=== PATIENT | male | born 1980 | race Caucasian/White ===

== ENCOUNTER 2019-09-15 02:31 | Emergency (ER) | payer OTHER, BC, SELFPAY ==
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
--- NOTE | ~2019-09-15 | XR_ITS ---
EXAMINATION: XR foot LT min 3V DATE: 09/15/2019 03:27 INDICATION: Calcaneal and great toe pain at the left foot TECHNIQUE: Dorsoplantar, two oblique and lateral views of the left foot were obtained. COMPARISON: None. FINDINGS: Minimally displaced mildly comminuted intra-articular fracture at the base of the left first distal p halanx. Approximately 2 mm depression of a small fragment at the central aspect of the articular surf laron. There is also a nondisplaced fracture at the tuft of the first distal phalanx. Normal alignment and remainder of the left foot. No other fractures identified. Joint spaces are normal. Small plantar calcaneal spur. IMPRESSION: 1. Mildly comminuted intra-articular fracture at the base of the left first distal phalanx with 2 mm depression of a small central fragment. 2. Nondisplaced fracture at the tuft of the first distal phalanx. Reviewed, dictated and finalized at location A. IMPRESSION: 1. Mildly comminuted intra-articular fracture at the base of the left first dis marcia phalanx with 2 mm depression of a small central fragment. 2. Nondisplaced fracture at the tuft of the first distal phalanx.
[2019-09-15 02:38] VITALS: BP 159/92; PULSE 100; RESP 19; TEMP 37.2; O2SAT 99
[2019-09-15] MEDS: MORPHINE SULFATE 4 MG/ML INJ IV PUSH (03:34)
[2019-09-15 04:16] VITALS: BP 132/85; PULSE 82; RESP 20; TEMP 37.1; O2SAT 100
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
[2019-09-15 04:58] VITALS: BP 135/85; PULSE 88; RESP 19; TEMP 36.8; O2SAT 100
--- NOTE | 2019-09-15 05:44 | PC.NURSE ---
called patient to let him know his wallet is here, he said he would be up later today to get it.
== END 2019-09-15 04:58 | disposition home or self-care (01) ==
PROVIDERS: Emergency Provider Emergency Medicine; PCP Family Medicine
DX: S92.422A Displaced fracture of distal phalanx of left great toe, initial encounter for closed fracture (principal); S92.425A Nondisplaced fracture of distal phalanx of left great toe, initial encounter for closed fracture; I10 Essential (primary) hypertension; F17.200 Nicotine dependence, unspecified, uncomplicated; V20.4XXA Motorcycle driver injured in collision with pedestrian or animal in traffic accident, initial encounter
CPT/HCPCS: 73590; 73630; 73700; 96374; 99284; J2270

== ENCOUNTER 2020-01-27 13:12 | Outpatient (CLI) | payer BC, SELFPAY ==
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
== END 2020-01-27 13:13 | disposition home or self-care (01) ==
DX: S42.022A Displaced fracture of shaft of left clavicle, initial encounter for closed fracture (principal); S22.32XA Fracture of one rib, left side, initial encounter for closed fracture
CPT/HCPCS: 73000

== ENCOUNTER 2020-03-12 14:05 | Outpatient (CLI) | payer BC, SELFPAY ==
--- NOTE | ~2020-03-12 | CT_ITS ---
EXAMINATION: CT shoulder LT wo con DATE: 03/12/2020 14:51 INDICATION: Closed fracture of left clavicle. TECHNIQUE: Computed tomography (CT) of the left shoulder was performed without intravenous contrast. Automated exposure control and iterative reconstruction technique were employed. The dose-length prod uct was 542.03 mGy-cm. COMPARISON: Left clavicle radiographs 01/27/2020 FINDINGS: There is a comminuted fracture involving middle third of left clavicle. The main distal fra cture fragment demonstrates 7 mm posterior displacement, one shaft width inferior displacement, and 5 mm overriding. There is bridging callus formation. The coracoclavicular interval is normal. The joel ohumeral joint is normal. There is moderate acromioclavicular joint osteoarthritis. IMPRESSION: 1. Healing comminuted fracture involving middle third of left clavicle. 2. Moderate acromioclavicular joint osteoarthritis. Reviewed, dictated and finalized at location A. OMS GUARD
== END 2020-03-12 14:06 | disposition home or self-care (01) ==
DX: S42.022A Displaced fracture of shaft of left clavicle, initial encounter for closed fracture (principal); M19.012 Primary osteoarthritis, left shoulder
CPT/HCPCS: 73200

== ENCOUNTER 2020-04-04 02:50 | Emergency (ER) | payer BC, SELFPAY ==
[2020-04-04 02:52] VITALS: BP 155/101; PULSE 102; RESP 16; TEMP 36.9; O2SAT 100
--- NOTE | 2020-04-04 03:05 | ED.SKABFB ---
HPI - Skin/Abscess/Foreign Bdy General Chief complaint: Skin/Abscess/Foreign Body Stated complaint: spider bite? Time Seen by Provider: 04/04/20 03:04 History of Present Illness HPI narrative: 39 yo male presents to the ED for a spider bite. He noted 2 small wounds on his left thigh a few days ago which seem to be getting bigger. He is remodeling a house and recently came across what he believes were brown recluses. Additionally he has a small weeping sore at the opening of his right nostril. It it painful. No fever, chills, nausea, vomiting, or other systemic symptoms. Related Data Allergies Allergy/AdvReac Type Severity Reaction Status Date / Time No Known Allergies Allergy Verified 04/04/20 03:11 Review of Systems Review of Systems: All systems reviewed & are unremarkable except as noted in HPI and below Constitutional: Constitutional: Denies fever(s) ENT: Denies sore throat Cardiovascular: Cardiovascular: Denies chest pain Respiratory: Respiratory: Denies dyspnea Gastrointestinal: Gastrointestinal: Denies abdominal pain and Denies nausea Integumentary/Breasts: Skin/Breast: Reports skin ulcer PMFSH Past Medical History Medical History (Updated 04/05/20 @ 00:00 by Zeke Willoughby) ADHD Anxiety Arm fracture, left Chronic back pain Hand fracture Bilateral HTN (hypertension) Leg fracture, left Pathologic fx vertebrae Ruptured C3 Pneumonia Ulcer Surgical History Surgical History (Updated 02/24/19 @ 13:27 by Mireille Pinedo) History of shoulder surgery Right Social History Social History (Updated 02/24/19 @ 13:34 by Mireille Pinedo) Smoking status: Current every day smoker Second hand tobacco smoke exposure: Yes Alcohol intake: current Substance use: never Gender identity (if verbalized by the patient): Male Exam Const: General: healthy appearing, no acute distress and alert Orientation/consciousness: patient oriented x3 HENMT: Other: small draining abscessed follicle in right nares. Eyes: Pupils: Equal, round and reactive pupils present Neck: Neck: normal visual inspection and no lymphadenopathy Chest: Chest palpation & inspection: no tenderness Resp: Effort & Inspection: normal respiratory effort Auscultation: clear to auscultation bilaterally, no rales, no rhonchi and no wheezes Cardio: Jugular venous distension: no JVD Rate: regular rate Rhythm: regular rhythm Heart sounds: no murmurs GI: GI Palp: Yes Soft to palpation and No Tenderness to palpation present (GI) Skin: Other: 2 small ulcerated areas to right thigh with mild surrounding erythema. Neuro: General: patient oriented x3, moves all extremities, no focal motor deficits and CN's II-XI intact bilaterally Speech: normal speech Gait exam (Neuro): Normal gait present Extrem: General: no edema Psych: Appearance: well kempt Affect: normal affect Course Vital Signs Vital signs: Vital Signs Temperature 36.9 C 04/04/20 02:52 Pulse Rate 102 H 04/04/20 02:52 Respiratory Rate 16 04/04/20 02:52 Blood Pressure 155/101 H 04/04/20 02:52 Pulse Oximetry 100 04/04/20 02:52 Temperature 36.9 C 04/04/20 02:52 Pulse Rate 102 H 04/04/20 02:52 Respiratory Rate 16 04/04/20 02:52 Blood Pressure 155/101 H 04/04/20 02:52 Pulse Oximetry 100 04/04/20 02:52 MDM - Skin/Abscess/Foreign Bdy Differential Diagnosis Differential diagnosis: Likely abscess of skin or subcutaneous tissue, cellulitis and insect bites Discharge Plan Discharge Clinical Impression: Brown recluse spider bite, Folliculitis of nose Patient Disposition: Home, Self-Care Condition: Stable Instructions: Antibiotic Form, Brown Recluse Spider Bite (ED) Prescriptions: New sulfamethoxazole-trimethoprim [Bactrim DS] 800-160 mg tablet 1 tablet PO Q12H Qty: 14 RF: 0 No Action hydrocodone-acetaminophen 5-325 mg tablet 1 tablet PO Q6H PRN (Reason: pain) Qty: 20 RF: 0 Follow-up/Referrals: [facility]
== END 2020-04-04 03:20 | disposition home or self-care (01) ==
PROVIDERS: Emergency Provider Emergency Medicine
DX: T63.331A Toxic effect of venom of brown recluse spider, accidental (unintentional), initial encounter (principal); L73.9 Follicular disorder, unspecified; I10 Essential (primary) hypertension; F17.200 Nicotine dependence, unspecified, uncomplicated
CPT/HCPCS: 99283; A9270

== ENCOUNTER 2021-05-30 21:13 | Emergency (ER) | payer OTHER, SELFPAY ==
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
[2021-05-30 21:20] VITALS: PULSE 108; RESP 16; TEMP 36.5; O2SAT 100
[2021-05-30] MEDS: TETANUS,DIPHTHERIA,AC PERTUSSIS ADULT (0.5 ML) BOOSTRIX IM (21:26)
[2021-05-30] MEDS: LIDOCAINE HCL 1% LOCAL INJ 20 ML VIAL 10 ML INFILTRATE (21:32)
--- NOTE | 2021-05-30 22:01 | PC.NURSE ---
ERP AT BEDSIDE TO SUTURE
[2021-05-30 22:45] VITALS: BP 132/70; PULSE 68; RESP 16; TEMP 36.6
== END 2021-05-30 22:47 | disposition home or self-care (01) ==
PROVIDERS: Emergency Provider Nurse Practitioner Family; PCP Family Medicine
DX: S61.211A Laceration without foreign body of left index finger without damage to nail, initial encounter (principal); Z23 Encounter for immunization; I10 Essential (primary) hypertension; Z87.01 Personal history of pneumonia (recurrent); F17.200 Nicotine dependence, unspecified, uncomplicated; W31.2XXA Contact with powered woodworking and forming machines, initial encounter
CPT/HCPCS: 12001; 90471; 90715; 99283

== ENCOUNTER 2021-09-17 21:28 | Emergency (ER) | payer OTHER, SELFPAY ==
[2021-09-17 21:47] VITALS: BP 123/69; PULSE 97; RESP 18; TEMP 36.6; O2SAT 97
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
[2021-09-17] MEDS: FLUORESCEIN SOD 1 MG/STRIP RIGHT EYE (22:29)
[2021-09-17] MEDS: TETRACAINE HCL 0.5% OPHTH SOLN 4 ML BTL 1 DROP RIGHT EYE (22:29)
[2021-09-17] MEDS: DACRIOSE EYE IRRIGATION 118 ML BOTTLE (22:33)
== END 2021-09-17 22:51 | disposition short-term general hospital (02) ==
PROVIDERS: Emergency Provider Emergency Medicine; PCP Family Medicine
DX: S05.01XA Injury of conjunctiva and corneal abrasion without foreign body, right eye, initial encounter (principal); F17.210 Nicotine dependence, cigarettes, uncomplicated; F90.9 Attention-deficit hyperactivity disorder, unspecified type; F41.9 Anxiety disorder, unspecified; I10 Essential (primary) hypertension; Y29.XXXA Contact with blunt object, undetermined intent, initial encounter
CPT/HCPCS: 99283; A9270

== ENCOUNTER 2025-02-25 20:45 | Emergency (ER) | payer SELFPAY ==
--- NOTE | ~2025-02-25 | CT_ITS ---
EXAMINATION: CTA abdomen pelvis DATE: 02/26/2025 00:17 INDICATION: Abdominal pain. Abdominal distention. TECHNIQUE: Computed tomographic angiography (CTA) of the abdomen and pelvis was performed with 100 mL Omnipaque-350 intravenous contrast. Automated exposure control and iterative reconstruction technique were employed. The dose-length product was 964.73 mGy-cm. Maximum intensity projection 3D-reconstructions of the aorta and other arteries were constructed by the technologist on a separate workstation. COMPARISON: CT abdomen and pelvis 12/05/2015 FINDINGS: The visualized portions of the lung bases demonstrate mild atelectasis. No pleural effusion. The heart size is normal. No pericardial effusion. There is a moderate-sized sliding hiatal hernia. The liver, gallbladder, spleen, pancreas, adrenal glands, and kidneys are normal. The prostate is mildly enlarged. There are no dilated loops of bowel. The appendix is normal. There is an umbilical hernia containing fat. There is a right inguinal hernia containing fat. There is no significant stenosis of celiac axis, superior mesenteric artery, the renal arteries, or inferior mesenteric artery. There is mild thoracic and lumbar spondylosis. IMPRESSION: 1. Moderate-sized sliding hiatal hernia. 2. Umbilical hernia containing fat. 3. Right inguinal hernia containing fat. 4. Normal aorta. Reviewed, dictated and finalized at location E. [employer]
[2025-02-25 20:48] VITALS: BP 174/85; PULSE 117; RESP 20; TEMP 36.7; O2SAT 100
--- OUTSIDE RECORDS SUMMARY | 2025-02-25 20:48 | XMS_ITS | Clinical Summary ---
Author Organization [facility] Address [address] [place] [address] Care Team Providers Care Store Keeper Name Role Phone Non-Staff, Provider Primary Care Provider Unavai lable Allergies No known active allergies Medications No known medications Active Problems No known active problems Immunizations Immunization Administration Dates Next Due Fluzone 6 Months+ Quad (0.5 mL Prefilled Syringe ) 02/06/2020 Social History Tobacco Use Types Packs/Day Years Used Date Smoking Tobacco: Heavy Smoker Cigarettes 1 30.9 Started: 03/26/1994 Smokeless Tobacco: Never Tobacco Cessation:Ready to Q uit: No; Counseling Given: Yes Alcohol Use Standard Drinks/Week Comments Yes 1.7 (1 standard drink = 0.6 oz p ure alcohol) Social Connection and Isolation Panel Answer Date Recorded In a typical week, how many times do you talk on the phone with family, friends, or neighbors? Once a week 01/25/2020 How often do you get together with friends or re latives? Once a week 01/25/2020 How often do you attend nondenominational or tenriism serv ices? Never 01/25/2020 Do you belong to any clubs o r organizations such as nondenominational groups, unions, fraternal or athletic groups, or school groups? No 01/25/2020 How often do you attend meet ings of the clubs or organizations you belong to? Never 01/25/2020 Marital Status Not on file 01/25/2020 AUDIT-C Answer Date Recorded Q1: How often do you have a drink containing alc ohol? Monthly or less 01/25/2020 Average Number of Drinks Not on file 020 Q3: How often do you have si x or more drinks on one occasion? Less than monthly 01/25/2020 Overall Financial Resource Strain (CARDIA) Answe r Date Recorded How hard is it for you to pa y for the very basics like food, housing, medical care, and heating? Not hard at all 01/25/2020 PHQ-2 Answer Date Recorded PHQ-2 Score - If the patient scores above 3, please move on to questions 3-9 0 03/01/2020 Hunger Vital Sign Answer Date Recorded Within the past 12 months, y ou worried that your food would run out before you got the money to buy more. Never true 01/25/20 20 Within the past 12 months, t he food you bought just didn't last and you didn't have money to get more. Never true 01/25/2020 PRAPARE - Transportation Answer Date Re corded In the past 12 months, has l ack of transportation kept you from medical appointments or from getting medications? No 07/2019 In the past 12 months, has l ack of transportation kept you from meetings, work, or from getting things needed for daily living? 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 Not on file Not on file Last Filed Vital Signs Vital Sign Reading Time Taken Comments Blood Pressure 126/70 03/05/2020 10:15 AM SALES REPRESENTATIVE PRINTING PAPER Pulse 96 03/05/2020 10:15 AM SALES REPRESENTATIVE PRINTING PAPER Temperature 37.1 C (98.7 F) 03/05/2020 10:15 AM SALES REPRESENTATIVE PRINTING PAPER Respiratory Rate 18 03/05/2020 10:15 AM SALES REPRESENTATIVE PRINTING PAPER Oxygen Saturation 98% 03/05/2020 10:15 AM SALES REPRESENTATIVE PRINTING PAPER Inhaled Oxygen Concentration - - Weight 86.6 kg (191 lb) 03/05/2020 10:15 AM SALES REPRESENTATIVE PRINTING PAPER Height 182.9 cm (6') 03/05/2020 10:15 AM SALES REPRESENTATIVE PRINTING PAPER Body Mass Index 25.9 03/05/2020 10:15 AM SALES REPRESENTATIVE PRINTING PAPER Plan of Treatment Health Maintenance Due Date Last Done Comments Colorectal Cancer Screening Colonoscopy (10 Years) 1979 Annual Physical 10/24/1982 Hepatitis C 10/24/1997 Hepatitis B Vaccines (1 of 3 - 19+ 3-dose series) 10/24/1998 Pneumococcal Vaccine: Pediatrics (0 to 5 Years) and At-Risk Patients (6 to 49 Years) (1 of 2 - PCV) 10/24/1998 03/01/2020 HPV Vaccines (1 - 3-dose SCD M series) 10/24/2006 COVID-19 Vaccine (2024-2 6 season) 2024 Influenza Adult (#1) 2024 02/06/2020, 02/27/2019 DTaP, Tdap and Td Vaccines ( 3 - Td or Tdap) 12/04/2029 12/05/2019, 11/26/2015 Hepatitis A Vaccines Aged Out No long er eligible based on patient's age to complete this topic Meningococcal B Vaccine Aged Out No l onger eligible based on patient's age to complete this topic Meningococcal Vaccine Aged Out No reinaldo melvin eligible based on patient's age to complete this topic RSV Immunizations Under 20 Months Aged Out No longer eligible b ased on patient's age to complete [place] [address] [facility] MEDICAID Care Teams Store Keeper Relationship Specialty Start Date End Date Non-Staff, Provider PCP - General UNKNOWN PHYSICIAN SPECIALTY 02/08/25
--- OUTSIDE RECORDS SUMMARY | 2025-02-25 20:48 | XMS_ITS | Encounter Summary ---
Author Organization [facility] Address [address] [place] [address] Care Team Providers Care Boat Hop Name Role Phone Elina Hampton NP Primary Care Provider Mirtha hills Non-Staff, Provider Primary Care Provider Nabli guadalupe Encounter Details Date Type Department Care Team (Late st Contact Info) Description 07/02/2020 XG Sciencest Message Enc [facility] Medical Group Multispecialty Care - [address] [place] [address] Elina Hampton, TRAIN GATEMAN RE: Question Social History Tobacco Use Types Packs/Day Years Used Date Smoking Tobacco: Heavy Smoker Cigarettes 1 30.9 Started: 03/26/1994 Smokeless Tobacco: Never Alcohol Use Standard Drinks/Week Comments Yes 1.7 [...] week 01/25/2020 How often do you attend spiritism or islam serv ices? Never 01/25/2020 Do you belong to any clubs o r organizations such as spiritism groups, unions, fraternal or athletic groups, or [...] money to buy more. 

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
--- OUTSIDE RECORDS SUMMARY | 2025-02-25 20:48 | XMS_ITS | Encounter Summary ---
Author Organization [facility] Address [address] [place] [place] [address] Care Team Providers Care Advertising Job Titles Name Role Phone Carmen Barros MD Primary Care Provider [phone] Simba Colunga MD Primary Care Provider + [phone] Encounter Details Date Type Department Care Team (Late st Contact Info) Description 12/07/2019 Ophth Exam [facility] [address] [place] [address] Parish Mccullough MD [address] [place] [phone] Social History Tobacco Use Types Packs/Day Years Used Date Smoking Tobacco: Every Day Cigarettes Smokeless Tobacco: Never Alcohol Use Standard Drinks/Week Comments Yes 0 (1 standard drink = 0.6 oz pur e alcohol) Sex and Gender Information Value Date Recorded Sex Assigned at Not on file Legal Sex Male 11:54 PM CDT Gender Identity Not on file Sexual Orientation Not on file documented as of this encounter Functional Status * Is person deaf or have serious hearing difficulty? Answer Date of Assessment Author No 12/05/2019 4:32 AM CDT Lindy Mullen RN * Is person blind or have serious difficulty seeing? Answer Date of Assessment Author No 12/05/2019 4:32 AM CDT Lindy Mullen RN * Does person have serious difficulty walking/climbing stairs? Answer Date of Assessment Author No 12/05/2019 4:32 AM Lindy Nicholson RN * Does person have difficulty dressing/bathing? Answer Date of Assessment Author No 12/05/2019 4:32 AM Lindy Nicholson RN * Does person have difficulty doing errands alone? Answer Date of Assessment Author No 12/05/2019 4:32 AM Lindy Nicholson RN documented as of this encounter Mental Status * Does person have difficulty concentrating/remembering/making decisions? Answer Entry Date Author Yes 12/05/2019 4:32 AM Lindy Nicholson RN documented in this encounter Plan of Treatment Not on file documented as of this encounter Visit Diagnoses Not on filedocumented in this encounter Care Teams Advertising Job Titles Relationship Specialty Start Date End Date Carmen Barros MD [address] [place] [phone] PCP - General 12/05/19 09/17/21 Simba Colunga MD [address] [place] [address] PCP - General Family Medicine 09/18/21 documented as of this encounter
--- OUTSIDE RECORDS SUMMARY | 2025-02-25 20:48 | XMS_ITS | Encounter Summary ---
Author Organization [facility] Address [address] [place] [address] Care Team Providers Care Mica Machine Operator Name Role Phone Simba Colunga MD Primary Care Provider [phone] Encounter Details Date Type Department Care Team (Late st Contact Info) Description 09/18/2021 Ophth Exam [facility] [address] [place] [phone] Pi, [place] [id number] [address] Social History Tobacco Use Types Packs/Day Years [...] of Assessment Author No 12/05/2019 4:32 AM MINT Lindy Mullen RN * Does person have [...] on filedocumented in this encounter Care Teams Mica Machine Operator Relationship Specialty Start Date End Date Simba Colunga MD [address] [place] [address] PCP - General Family Medicine 09/18/21 documented as of this encounter
--- OUTSIDE RECORDS SUMMARY | 2025-02-25 20:48 | XMS_ITS | Encounter Summary ---
Author Organization [facility] Address [address] [facility] [place] [place] [address] Care Team Providers Care Order Booker Name Role Phone Carmen Barros MD Primary Care Provider [phone] Simba Colunga MD Primary Care Provider + [phone] Encounter Details Date Type Department Care Team (Late st Contact Info) Description 12/05/2019 Ophth Exam [facility] [address] [place] [id number] Zach Silverman MD [address] [place] [address] [place] [address] Social History Tobacco Use Types Packs/Day Years [...] as of this encounter Functional Status * Functional and Cognitive Status Question Answer Date of Assessment Author Is person deaf or have pinky us hearing difficulty? No 12/05/2019 4:32 AM CDT Lindy Mullen R N Is person blind or have seri ous difficulty seeing? No 12/05/2019 4:32 AM CDT Lindy Mullen R N Does person have serious dif ficulty walking/climbing stairs? No 12/05/2019 4:32 AM Jaqueline Nicholson RN Does person have difficulty dressing/bathing? No 12/05/2019 4:32 AM Lindy Nicholson R N Does person have difficulty doing errands alone? No 12/05/2019 4:32 AM Lindy Nicholson R N Does person have difficulty concentrating/remembering/making decisions? Yes 12/05/2019 4:32 AM Lindy Nicholson R N * Is person deaf or have serious hearing difficulty? Answer Date of Assessment Author No 12/05/2019 4:32 AM Lindy Nicholson RN * Is person blind or have serious difficulty seeing? Answer Date of Assessment Author No 12/05/2019 4:32 AM Lindy Nicholson RN * Does person have serious difficulty [...] on filedocumented in this encounter Care Teams Order Booker Relationship Specialty Start Date End Date Carmen Barros MD [address] [place] [address] [address] [place] [phone] PCP - General 12/05/19 09/17/21 Simba Colunga MD [address] [place] [address] PCP - General Family Medicine 09/18/21 documented as of this encounter
[2025-02-25 20:57] VITALS: BP 142/88; PULSE 104; RESP 12; O2SAT 100; O2SAT 98
--- NOTE | 2025-02-25 21:30 | ED.GENADULT ---
HPI - General Adult General Chief complaint: Unspecified Stated complaint: swelling all over, issues going to the bathroom Related Data Allergies Allergy/AdvReac Type Severity Reaction Status Date / Time No Known Allergies Allergy Verified 09/17/21 22:07 [facility] Past Medical History Medical History ADHD Anxiety Arm fracture, left Chronic back pain Hand fracture Bilateral HTN (hypertension) Leg fracture, left Pathologic fx vertebrae Ruptured C3 Pneumonia Ulcer Surgical History Surgical History History of shoulder surgery Right Social History Social History Smoking status: Current every day smoker Second hand tobacco smoke exposure: Yes Alcohol intake: current Alcohol use details: Occasional Substance use: never Gender identity (if verbalized by the patient): Male Course Vital Signs Vital signs: Vital Signs Temperature 36.7 C 02/25/25 20:48 Pulse Rate 117 H 02/25/25 20:48 Respiratory Rate 20 02/25/25 20:48 Blood Pressure 174/85 H 02/25/25 20:48 Pulse Oximetry 100 02/25/25 20:48 Temperature 36.7 C 02/25/25 20:48 Pulse Rate 104 H 02/25/25 20:57 Respiratory Rate 12 02/25/25 20:57 Blood Pressure 142/88 H 02/25/25 20:57 Pulse Oximetry 98 02/25/25 20:57 Oxygen Delivery Room Air 02/25/25 20:57 Discharge Plan Discharge Patient Language: Indonesian Prescriptions: No Action hydrocodone-acetaminophen 5-325 mg tablet 1 tablet PO Q6H PRN (Reason: pain) Qty: 20 0RF sulfamethoxazole-trimethoprim [Bactrim DS] 800-160 mg tablet 1 tablet PO Q12H Qty: 14 0RF cephalexin 500 mg tablet 500 mg PO Q12H Qty: 14 0RF Follow-up/Referrals: Simba Colunga MD [Primary Care Provider, Family Practice]
[2025-02-25 21:33] VITALS: BP 139/89; PULSE 94; RESP 19; O2SAT 99
[2025-02-25 22:06] LABS: Hematocrit 48.4 % (42.0-52.0); Hemoglobin 16.1 g/dL (14.0-18.0); Immature Granulocyte Percent A 0.4 % (0-0.5); Lymphocytes Absolute Auto 1.86 K/mm3 (0.9-3.2); Mean Corpuscular HGB Conc 33.3 g/dl (32-36); Mean Corpuscular Hemoglobin 30.0 pg (26-34); Mean Corpuscular Volume 90.3 fl (80-100); Nucleated Red Blood Cells Absolute Auto 0.000 K/mm3 (0.0-0.012); Nucleated Red Blood Cells Perc 0.0 % (0.0-0.2); Platelet Count Result 262 k/mm3 (150-375); Red Blood Count 5.36 M/mm3 (4.6-6.20); White Blood Count 8.4 K/mm3 (4.5-10.0)
--- NOTE | 2025-02-25 22:06 | PC.NURSE ---
Pt states he is unable to provide urine sample at this time. Urinal cup at bedside.
--- NOTE | 2025-02-25 22:20 | ED.GENADULT ---
HPI - General Adult General Chief complaint: Unspecified Stated complaint: swelling all over, issues going to the bathroom Time Seen by Provider: 02/25/25 22:09 Source: patient Mode of arrival: ambulatory Limitations: no limitations History of Present Illness HPI narrative: Patient is a 44-year-old male presents to the emergency department complaining of abdominal pain, abdominal distension, weight gain over the past few days, right testicle discomfort. Symptoms all started over the past 2-3 days, progressively getting worse. Notes his last bowel movement was earlier today, very small amount and was straining a lot. Is unsure if he has a history of hernia but believes he does of the umbilical region. Notes he has got a history of right testicle discomfort in which she had ultrasound done and was told he had venous engorgement. Notes that the testicle discomfort comes and goes, seems to be present when he urinates. Denies any nausea or vomiting. Denies any recent injuries recent illness. Denies chest pain, difficulty breathing, fever, focal weakness, numbness. Notes he is going to floor tomorrow and had a buy all new clothes because of his abdomen being more protuberant. Related Data Allergies Allergy/AdvReac Type Severity Reaction Status Date / Time No Known Allergies Allergy Verified 09/17/21 22:07 Review of Systems Review of Systems: A 10 system review of systems was completed on the patient and is negative except for what is stated in the HPI. Nursing and ancillary documentation was reviewed. PMFSH Past Medical History Medical History ADHD Anxiety Arm fracture, left Chronic back pain Hand fracture Bilateral HTN (hypertension) Leg fracture, left Pathologic fx vertebrae Ruptured C3 Pneumonia Ulcer Surgical History Surgical History History of shoulder surgery Right Social History Social History Smoking status: Current every day smoker Second hand tobacco smoke exposure: Yes Alcohol intake: current Alcohol use details: Occasional Substance use: never Gender identity (if verbalized by the patient): Male Exam Narrative: CONST: No acute distress. Well nourished. HENMT: Head is normocephalic and atraumatic. Tacky mucous membranes. No posterior oropharynx erythema. EYES: No scleral icterus. No conjunctival injection or pallor. PERRL. NECK: No meningeal signs. RESP: Able to speak in full sentences. Normal respiratory effort. CTAB. CARDIO: Regular rate. Regular rhythm. 2+ DP and radial pulses bilaterally. GI: Mildly distended. Minimal generalized tenderness palpation, no focal tenderness palpation. No rebound or guarding or rigidity. : No CVA tenderness to palpation. Circumcised penis, no lesions, no discharge, no erythema, no tenderness to palpation. Bilateral testicles are descended, no tenderness to palpation or palpable hernias throughout the left scrotum. No tenderness to palpation throughout the right scrotum and testicle. Palpable fullness just superior to the right testicle likely varicocele hydrocele, nontender to palpation. No palpable hernias throughout the right and left scrotum. Cremasteric reflex present bilaterally. SKIN: No rashes or lesions noted on exposed skin. NEURO: Oriented x3. Moves all extremities. EXTREM/MSK/BACK: No pedal edema. PSYCH: Normal affect. Course Vital Signs Vital signs: Vital Signs Temperature 98.1 F 02/25/25 20:48 Pulse Rate 117 H 02/25/25 20:48 Respiratory Rate 20 02/25/25 20:48 Blood Pressure 174/85 H 02/25/25 20:48 Pulse Oximetry 100 02/25/25 20:48 Temperature 98.1 F 02/25/25 20:48 Pulse Rate 89 02/26/25 02:19 Respiratory Rate 20 02/26/25 02:19 Blood Pressure 129/87 02/26/25 02:19 Pulse Oximetry 99 02/26/25 02:19 Oxygen Delivery Room Air 02/25/25 20:57 [facility] Narrative Medical decision making narrative: Patient presents with the above complaint. Initial vitals are remarkable for tachycardia, patient was not tachycardic on my examination. Physical examination as noted above. Plan discussed: laboratory analysis, imaging. Patient ordered IVF, continuous cardiac monitoring, continuous pulse oximetry. Patient notes that his pain is minimal right now currently a 3/10, shared decision making performed regarding any strong pain medications due to the potential side effect of constipation patient notes that he would like to forego any pain medications and understands to let us know if this changes and we can order some. CT abdomen pelvis preliminary findings radiology interpretation is no acute finding. This was compared to prior CT on December 05, 2015. Patient educated on signs symptoms of testicular torsion and reasons to immediately return to the emergency department. Will plan for empiric treatment of possible epididymitis given the discomfort and patient prescribed levofloxacin. Patient was reassessed at the bedside. No changes in physical exam. Patient is in no acute distress. The patient has remained stable throughout the entire ED visit. Counseled patient regarding diagnostic results and potential diagnosis. Anticipatory guidance provided. Patient instructed to follow up with PCP within the next 3 days. Patient counseled on: false reassurance from an emergency department evaluation; no current evidence of a medical emergency; return immediately for any new, recurrent, worsening, concerning, or refractory symptoms. Patient prescribed levofloxacin, Metamucil, MiraLax, Tylenol. Prescription sent to preferred pharmacy. Medications discussed with patient. Additional verbal and printed discharge instructions were given and discussed with the patient. Patient verbally acknowledges understanding of condition and discharge instructions. All questions were answered to the patient's satisfaction. Patient is in agreement with the plan of care. The patient is stable for discharge and was discharged without incident. Differential Diagnosis Differential Diagnosis: Bowel obstruction, ileus, enteritis, colitis, pancreatitis, hepatobiliary pathology, mesenteric ischemia, AAA, varicocele, hydrocele, epididymitis, UTI, ureterolithiasis, constipation, metabolic derangement, electrolyte derangement, cancer. Medical Records I have reviewed the following patient records and this information was taken into consideration when formulating the assessment and plan.: previous ER visits Lab Data MDM Lab Attestation statement: I personally reviewed the patient's lab results. Lab results narrative: CBC is without any significant abnormalities. Comprehensive metabolic panel reveals a sodium 135. TSH is 1.21. Lipase is 40. Total creatine kinase is 249. Magnesium is 2.0. Lactic acid is 1.4. Urinalysis reveals greater than 1.045 specific gravity, 6-10 white blood cells, no bacteria seen. 02/25/25 22:01 02/25/25 23:12 Labs: Lab Results 02/25/25 02/25/25 02/25/25 Range/Units 22:01 22:25 23:11 WBC 8.4 (4.5-10.0) K/mm3 RBC 5.36 (4.6-6.20) M/mm3 Hgb 16.1 (14.0-18.0) g/dL Hct 48.4 (42.0-52.0) % MCV 90.3 (80-100) fl MCH 30.0 (26-34) pg MCHC 33.3 (32-36) g/dl RDW 14.4 (11.5-14.5) % Plt Count 262 (150-375) k/mm3 MPV 9.8 (7.4-10.4) fl Immature Gran % (Auto) 0.4 (0-0.5) % Neut % (Auto) 60.5 (45.5-73.1) % Lymph % (Auto) 22.3 (18.3-44.2) % [place] % (Auto) 13.7 H (2.6-8.5) % Eos % (Auto) 2.5 (0-4.4) % Baso % (Auto) 0.6 (0.2-1.2) % Lymph # (Auto) 1.86 (0.9-3.2) K/mm3 [place] # (Auto) 1.1 H (0.1-0.6) K/mm3 Eos # (Auto) 0.2 (0-0.3) K/mm3 Baso # (Auto) 0.1 (0.0-0.1) K/mm3 Abs Immat Gran (auto) 0.03 (0.00-0.031) K/mm3 Absolute Neuts (auto) 5.1 (1.3-6.7) K/mm3 Absolute Nucleated RBC 0.000 (0.0-0.012) K/mm3 Nucleated RBC % 0.0 (0.0-0.2) % Sodium (137-145) mmol/L Potassium (3.4-5.0) mmol/L Chloride (98-107) mmol/L Carbon Dioxide (22-30) mmol/L Anion Gap (4-12) mmol/L BUN (9-20) mg/dL Creatinine (0.7-1.3) mg/dL Estim Creat Clear Calc ml/min Estimated GFR (59 - ) Glucose (65-110) mg/dL Lactic Acid 1.4 (0.7-2.0) mmol/L Calcium (8.4-10.2) mg/dL Magnesium (1.6-2.3) mg/dL Total Bilirubin (0.2-1.3) mg/dL AST (17-59) U/L ALT (6-50) U/L Alkaline Phosphatase (38-126) U/L Total Creatine Kinase (55-170) U/L Total Protein (6.3-8.2) g/dL Albumin (3.5-5.1) g/dL Lipase (23-300) U/L TSH (Reflex) 1.210 (0.465-4.68) uIU/mL Urine Color (Yellow) Urine Appearance (Clear) Urine pH (5.0-9.0) Ur Specific [place] (1.001-1.035) Urine Protein (Negative) mg/dL Urine Glucose (UA) (Negative) mg/dL Urine Ketones (Negative) mg/dL Ur Blood (Man) (Negative) Urine Nitrate (Negative) Urine Bilirubin (Negative) Urine Urobilinogen (<2.0) mg/dL Leukocyte Esterase Rfl (Negative) ALBERTO/UL Urine RBC (0-2) /hpf Urine WBC (0-3) /hpf Ur Squamous Epith Cells (Few) /hpf Urine Bacteria /hpf Urine Casts 02/25/25 02/26/25 Range/Units 23:12 02:12 WBC (4.5-10.0) K/mm3 RBC (4.6-6.20) M/mm3 Hgb (14.0-18.0) g/dL Hct (42.0-52.0) % MCV (80-100) fl MCH (26-34) pg MCHC (32-36) g/dl RDW (11.5-14.5) % Plt Count (150-375) k/mm3 MPV (7.4-10.4) fl Immature Gran % (Auto) (0-0.5) % Neut % (Auto) (45.5-73.1) % Lymph % (Auto) (18.3-44.2) % [place] % (Auto) (2.6-8.5) % Eos % (Auto) (0-4.4) % Baso % (Auto) (0.2-1.2) % Lymph # (Auto) (0.9-3.2) K/mm3 [place] # (Auto) (0.1-0.6) K/mm3 Eos # (Auto) (0-0.3) K/mm3 Baso # (Auto) (0.0-0.1) K/mm3 Abs Immat Gran (auto) (0.00-0.031) K/mm3 Absolute Neuts (auto) (1.3-6.7) K/mm3 Absolute Nucleated RBC (0.0-0.012) K/mm3 Nucleated RBC % (0.0-0.2) % Sodium 135 L (137-145) mmol/L Potassium 4.4 (3.4-5.0) mmol/L Chloride 104 (98-107) mmol/L Carbon Dioxide 28 (22-30) mmol/L Anion Gap 3 L (4-12) mmol/L BUN 11 (9-20) mg/dL Creatinine 1.21 (0.7-1.3) mg/dL Estim Creat Clear Calc 88 ml/min Estimated GFR > 60 (59 - ) Glucose 103 (65-110) mg/dL Lactic Acid (0.7-2.0) mmol/L Calcium 9.1 (8.4-10.2) mg/dL Magnesium 2.0 (1.6-2.3) mg/dL Total Bilirubin 0.5 (0.2-1.3) mg/dL AST 41 (17-59) U/L ALT 40 (6-50) U/L Alkaline Phosphatase 72 (38-126) U/L Total Creatine Kinase 249 H (55-170) U/L Total Protein 7.0 (6.3-8.2) g/dL Albumin 3.8 (3.5-5.1) g/dL Lipase 40 (23-300) U/L TSH (Reflex) (0.465-4.68) uIU/mL Urine Color Yellow (Yellow) Urine Appearance Clear (Clear) Urine pH 7.0 (5.0-9.0) Ur Specific [place] > 1.045 H (1.001-1.035) Urine Protein Trace (Negative) mg/dL Urine Glucose (UA) Negative (Negative) mg/dL Urine Ketones Negative (Negative) mg/dL Ur Blood (Man) Negative (Negative) Urine Nitrate Negative (Negative) Urine Bilirubin Negative (Negative) Urine Urobilinogen 0.2 (<2.0) mg/dL Leukocyte Esterase Rfl Negative (Negative) ALBERTO/UL Urine RBC 0-2 (0-2) /hpf Urine WBC 6-10 H (0-3) /hpf Ur Squamous Epith Cells None seen (Few) /hpf Urine Bacteria None seen /hpf Urine Casts 0-2 Discharge Plan Discharge Clinical Impression: Abdominal pain, Pain in scrotum, Abdominal bloating, Epididymitis Patient Disposition: Home Condition: Stable Instructions: Antibiotic Form, Constipation (ED), Epididymitis (ED), High Fiber Diet (ED), Gas and Bloating (ED), Abdominal Pain (ED), Scrotal Pain (ED) Additional Instructions: Take the pain medications as needed, rest and stay hydrated, increase her fiber intake, follow-up with your primary care physician in the next few days for reassessment, take the stool softeners as prescribed. Return immediately to the emergency department for any new or concerning symptoms especially any emergent concerns for life, limb, eyesight. Take the antibiotics as prescribed to completion. Patient Language: Syrian Prescriptions: New acetaminophen 500 mg tablet 500 mg PO Q6H PRN (Reason: pain) Qty: 30 0RF polyethylene glycol 3350 [Miralax] 17 gram/dose powder 17 g PO DAILY Qty: 119 0RF Metamucil 3.4 gram/5.4 gram powder 1 tbsp PO DAILY Qty: 660 0RF Rx Instructions: mix into at least 8 oz of water or juice before administering levofloxacin 500 mg tablet 500 mg PO DAILY 10 Days Qty: 10 0RF No Action hydrocodone-acetaminophen 5-325 mg tablet 1 tablet PO Q6H PRN (Reason: pain) Qty: 20 0RF sulfamethoxazole-trimethoprim [Bactrim DS] 800-160 mg tablet 1 tablet PO Q12H Qty: 14 0RF cephalexin 500 mg tablet 500 mg PO Q12H Qty: 14 0RF Follow-up/Referrals: Simba Colunga MD [Physician, Family Practice] - 3 Days Time of Disposition: 03:05
[2025-02-25] MEDS: SODIUM CHLORIDE 0.9% IV 1,000 ML 999 ML IV CONT (22:27)
[2025-02-25 23:00] VITALS: BP 129/79; PULSE 97; RESP 24; O2SAT 100
--- NOTE | 2025-02-25 23:13 | PC.NURSE ---
Pt states he is unable to give sample at this time. Straight cath mentioned. Pt refuses.
[2025-02-25 23:16] VITALS: BP 136/69; PULSE 99; RESP 19; O2SAT 98
[2025-02-25 23:30] VITALS: BP 133/97; PULSE 94; RESP 22; O2SAT 98
[2025-02-25 23:35] LABS: Alanine Aminotransferase 40 U/L (6-50); Albumin Level 3.8 g/dL (3.5-5.1); Alkaline Phosphatase 72 U/L (38-126); Anion Gap 3 mmol/L (4-12); Aspartate Amino Transferase 41 U/L (17-59); Bilirubin,Total 0.5 mg/dL (0.2-1.3); Blood Urea Nitrogen 11 mg/dL (9-20); Calcium 9.1 mg/dL (8.4-10.2); Carbon Dioxide 28 mmol/L (22-30); Chloride 104 mmol/L (98-107); Creatine Kinase 249 U/L (55-170); Estimated CRCL calculation 88 ml/min; Estimated Glomerular Filt Rate > 60; Glucose 103 mg/dL (65-110); Lipase 40 U/L (23-300); Magnesium 2.0 mg/dL (1.6-2.3); Potassium 4.4 mmol/L (3.4-5.0); Sodium 135 mmol/L (137-145); Total Protein 7.0 g/dL (6.3-8.2)
[2025-02-26 00:12] LABS: Thyroid Stimulating Hormone Reflex 1.210 uIU/mL (0.465-4.68)
--- NOTE | 2025-02-26 01:32 | PC.NURSE ---
Pt still states he is unable to urinate. Pt still refusing cath.
[2025-02-26 02:19] VITALS: BP 129/87; PULSE 89; RESP 20; O2SAT 99
[2025-02-26] MEDS: HYDROcodone/acetaminophen (*CRX) 5-325 MG TABLET 1 TAB PO (02:26)
[2025-02-26 02:29] LABS: Add Urine Microscopic? YES; Appearance Urine Clear (Clear); Glucose Urine UA Negative (Negative); Leukocyte Esterase Ur Negative LEU/UL (Negative); Nitrate Urine Negative (Negative); Non Pathogenic Casts 0-2; Specific Grav Ur > 1.045 (1.001-1.035)
[2025-02-26 03:35] VITALS: BP 139/76; PULSE 92; RESP 21; O2SAT 100
== END 2025-02-26 03:37 | disposition home or self-care (01) ==
PROVIDERS: Emergency Provider Student in an Organized Health Care Education/Training Program
DX: R10.9 Unspecified abdominal pain (principal); N50.811 Right testicular pain; R14.0 Abdominal distension (gaseous); N45.1 Epididymitis; F90.9 Attention-deficit hyperactivity disorder, unspecified type; I10 Essential (primary) hypertension; F17.210 Nicotine dependence, cigarettes, uncomplicated
CPT/HCPCS: 36415; 74174; 80053; 81001; 82550; 83605; 83690; 83735; 84443; 85025; 87086; 96360; 99284; A9270; J7030; Q9967